=== PATIENT | female | born 1945 | race Caucasian/White ===

== ENCOUNTER 2018-07-10 07:36 | Emergency (ER) | payer MEDICARE, OTHER ==
[2018-07-10] MEDS ORDERED: SODIUM CHLORIDE 0.9% (FLUSH) 10 ML SYG IV PRN (08:06)
[2018-07-10] MEDS ORDERED: MECLIZINE HCL 12.5 MG TAB PO ONE (08:08)
[2018-07-10] MEDS: SODIUM CHLORIDE 0.9% 1000ML 1,000 ML IVS PRN ×2 (08:14→09:30)
--- NOTE | 2018-07-10 08:17 | ED.PDOC ---
History of Present Illness - General Chief Complaint: Respiratory Problem Stated Complaint: shortness of breath Time Seen by Provider: 07/10/18 08:06 Source: patient - History of Present Illness Initial Comments: PT PRESENTS TO THE ED WITH COMPLAINT OF VERTIGO, NAUSEA, AND VOMITING THAT BEGAN THIS AM WHILE GETTING UP TO USE THE RESTROOM. PT ALSO REPORTS SOB, NASAL CONGESTION, AND COUGH THAT HAS BEEN GOING ON FOR SOME TIME NOW. PT DENIES FEVER CHILLS, FOCAL WEAKNESS, OR NUMBNESS. Severity: moderate Improving Factors: immobilization, rest Worsening Factors: movement Associated Symptoms: cough, diaphoresis, nausea/vomiting Allergies/Adverse Reactions: Allergies NO KNOWN ALLERGY Allergy (Verified 07/10/18 07:43) Review of Systems - Review of Systems Constitutional: Denies: chills, fever EENTM: States: nose congestion. Denies: throat pain Respiratory: States: cough, short of breath Cardiology: Denies: chest pain, palpitations Gastrointestinal/Abdominal: States: nausea, vomiting. Denies: abdominal pain Genitourinary: Denies: dysuria, frequency Musculoskeletal: Denies: joint pain, joint swelling Skin: Denies: dryness, lesions Neurological: Denies: headache, numbness, paresthesia, weakness Endocrine: States: no symptoms reported Hematologic/Lymphatic: States: no symptoms reported Past Medical History (General) - Patient Medical History Hx Seizures: No Hx of COPD: No Hx Cardiac Disorders: No Hx Thyroid Disease: No Hx Diabetes: No Hx Other - free text: RECENTLY DIAGNOSED ENDOMETRIAL CANCER Surgical History: appendectomy - Social History Hx Tobacco Use: No Family Medical History - Family History Mother Family History: No Known Physical Exam - Physical Exam General Appearance: Alert, Frail, Ill Appearing, Well Hydrated Eye Exam: bilateral normal, bilateral other - HORIZONTAL NYSTAGMUS WITH LEFT SIDED GAZE Ears, Nose, Throat: hearing grossly normal Neck: supple, normal inspection Respiratory: no respiratory distress, no accessory muscle use, crackles - AT BILATERAL BASES Cardiovascular/Chest: no murmur, tachycardia Gastrointestinal/Abdominal: non tender, soft Back Exam: normal inspection, no CVA tenderness Extremity: non-tender, no pedal edema Neurologic: alert, oriented x 3, depressed affect Skin Exam: normal color, warm/dry Progress - Progress Progress: 07/10/18 10:34 PT REPORTS SOME IMPROVEMENT IN SYMPTOMS AFTER IV FLUIDS. LABS, CT FINDINGS, AND PLAN FOR TRANSFER DISCUSSED WITH PT AND FAMILY MEMBERS AT BEDSIDE. - Results/Orders Results/Orders: Laboratory Tests 07/10/18 07/10/18 07/10/18 07:20 07:20 07:20 WBC 18.1 H RBC 3.94 L Hgb 8.7 L Hct 27.9 L MCV 70.9 L MCH 22.0 L MCHC 31.0 L RDW 16.8 H Plt Count 676 H MPV 6.3 L Absolute Neuts (auto) 11.60 H Absolute Lymphs (auto) 5.20 H Absolute Monos (auto) 1.10 H Absolute Eos (auto) 0.20 Absolute Basos (auto) 0.10 Neutrophils % 64.0 Lymphocytes % 28.5 Monocytes % 5.9 Eosinophils % 1.1 Basophils % 0.5 Normal RBC Morphology Plts mahesh increased Sodium 134 L Potassium 3.2 L Chloride 101 Carbon Dioxide 19 L Anion Gap 17.2 BUN 8 Creatinine 0.81 BUN/Creatinine Ratio 9.9 L Random Glucose 118 H Serum Osmolality 267.7 L Calcium 8.9 Total Bilirubin 0.7 AST 55 H ALT 23 Alkaline Phosphatase 77 Creatine Kinase 37 CK-MB (CK-2) 1.2 CK-MB (CK-2) % Not Reportable Troponin I < 0.02 B-Natriuretic Peptide 64.5 Serum Total Protein 8.1 Albumin 2.6 L Globulin 5.5 H Albumin/Globulin Ratio 0.5 L Urine Color Urine Appearance Urine pH Ur Specific Latty Urine Protein Urine Glucose (UA) Urine Ketones Urine Blood Urine Nitrite Urine Bilirubin Urine Urobilinogen Ur Leukocyte Esterase Urine RBC Urine WBC Ur Epithelial Cells Urine Bacteria 07/10/18 09:50 WBC RBC Hgb Hct MCV MCH MCHC RDW Plt Count MPV Absolute Neuts (auto) Absolute Lymphs (auto) Absolute Monos (auto) Absolute Eos (auto) Absolute Basos (auto) Neutrophils % Lymphocytes % Monocytes % Eosinophils % Basophils % Normal RBC Morphology Sodium Potassium Chloride Carbon Dioxide Anion Gap BUN Creatinine BUN/Creatinine Ratio Random Glucose Serum Osmolality Calcium Total Bilirubin AST ALT Alkaline Phosphatase Creatine Kinase CK-MB (CK-2) CK-MB (CK-2) % Troponin I B-Natriuretic Peptide Serum Total Protein Albumin Globulin Albumin/Globulin Ratio Urine Color Yellow Urine Appearance Clear Urine pH 6.5 Ur Specific Latty 1.015 Urine Protein Negative Urine Glucose (UA) Negative Urine Ketones 15 H Urine Blood Moderate H Urine Nitrite Negative Urine Bilirubin Negative Urine Urobilinogen 0.2 Ur Leukocyte Esterase Large H Urine RBC 5-10 H Urine WBC 20-30 H Ur Epithelial Cells 0-1 Urine Bacteria 0 - EKG/XRAY/CT EKG: Sinus, Tachy - 104BPM, NL INTERVALS, NL AXIS, no ST T wave changes - NO OLD EKG FOR COMPARISON XRAY: chest - EXTENSIVE METASTATIC DISEASE CT: CHEST/AB/PEL: EXTENSIVE METASTATIC DISEASE CT Ordered: Yes CT Interpretation Call Back: No Departure - Departure Clinical Impression: 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 Copy, Patient Portal Self Enrollment Referrals: [facility], [facility] [Primary Care Provider] - 1-2 Weeks Critical Care Note - Critical Care Note Total Time (mins): 45 Transfer to Outside Facility - Transfer Information Accepting Provider:: DR. WRIGHT Accepting Facility: [facility] Reason for Transfer: required specialist not available - ONCOLOGY
--- NOTE | 2018-07-10 08:49 | RAD ---
Study: Single Frontal Radiograph of the Chest. Indication:sob, cough Comparison: None. Impression: Cardiomegaly. Innumerable rounded opacities throughout the bilateral lungs concerning for extensive metastatic disease. Infectious process is an additional less favored consideration. Tiny pleural effusions suspected. No pneumothorax. Degenerative changes of the shoulders and spine noted. Electronically signed by: Collin Cummins MD 07/10/2018 8:41 AM CDT
--- NOTE | 2018-07-10 09:43 | CT ---
EXAM DESCRIPTION: Chest w/Contrast CLINICAL HISTORY: 73 years, Female, sob, multiple lung masses on cxr COMPARISON: Correlation is made with chest x-ray from July 10, 2018 TECHNIQUE: Thin-section noncontrast axial CT images are obtained according to our protocol. Reconstructed MPR images are created and reviewed as well. FINDINGS: Lungs: Numerous pulmonary masses throughout both lungs consistent with extensive pulmonary metastatic disease. One of the larger masses in the anterior segment right upper lobe abuts the mediastinum and hilar region and measures 4.2 x 3.7 cm. Large mass in the left perihilar region measures 3.4 x 2.3 cm. Large lingular mass measures 4.8 cm in greatest dimension. Largest left lower lobe mass measures 6 cm in greatest dimension. Bone window images show no bony destructive lesion to suggest osseous metastatic disease. Mediastinum: In the mediastinum, multiple masses are seen consistent with aileen metastatic disease. Large left paratracheal node measures 3 cm short axis dimension. Large right paratracheal/pretracheal node measures 3.3 cm short axis dimension. Large prevascular nodes measure 2.5 cm and 2.3 cm. Heart size is normal with no pericardial effusion. Chest wall/axilla: No mass or adenopathy. Breast tissue appears symmetrical. Lower neck/supraclavicular: Large node in the right lower neck measures 1.8 cm short axis dimension. No supraclavicular or axillary aileen enlargement. Upper abdomen: See separate report for CT abdomen and pelvis. Coronal and sagittal reformatted images confirm the findings. Lucent lesion in the upper T-spine is thought to be hemangioma rather than metastasis with well-defined sclerotic margins. Lucencies in the left scapula are indeterminate. Correlate with bone scan findings. IMPRESSION: Multiple pulmonary masses consistent with metastatic disease. Enlarged mediastinal and lower right cervical lymph nodes consistent with aileen metastases. This exam was performed according to our departmental dose-optimization program, which includes automated exposure control, adjustment of the mA and/or kV according to patient size and/or use of iterative reconstruction technique. Total DLP equals 845.06 mGycm. Electronically signed by: Brayan Reid MD 07/10/2018 9:39 AM CDT
--- NOTE | 2018-07-10 09:59 | CT ---
EXAM DESCRIPTION: CT ABDOMEN AND PELVIS WITH CONTRAST CLINICAL HISTORY: suspected malignancy COMPARISON: None Available. TECHNIQUE: CT of the abdomen and pelvis are performed during IV bolus administration of routine adult dose of nonionic iodinated IV contrast. No oral contrast. FINDINGS: In the lower chest, the lung bases are abnormal with multiple pulmonary metastases. See separate report for CT of the chest. Heart size is normal. CT abdomen A lesion in the spleen is ill-defined with irregular margins measuring 2.2 x 1.8 cm. This may represent splenic metastasis. No focal liver lesions. No calcified stones in the gallbladder. The liver, pancreas, gallbladder, adrenal glands, stomach and kidneys are unremarkable in appearance. No inflammation around the pancreas. No renal stones or hydronephrosis. No bowel dilatation to suggest obstruction. Enlarged retroperitoneal lymph nodes are seen below the level of the right renal artery in the aortocaval space measuring 2 cm short axis dimension and more inferiorly 1.5 cm short axis dimension. Necrotic metastatic lymph nodes are thought most likely. CT pelvis Mass in the pelvis is consistent with enlarged uterus. In the upper half of the enlarged uterus, a mass is seen 11 x 9 x 10 cm with low density necrotic areas and small collections of gas. Necrotic tumor such as uterine carcinoma or leiomyosarcoma must be considered with this appearance. Gas could be related to nitrogen accumulation within necrosis, previous instrumentation or fistula. No abnormal thick-walled bowel to suggest fistulization with the adjacent bowel loops. Ovaries do not appear enlarged. Appendix is not identified. No inflammation around the cecum or terminal ileum or sigmoid colon. Bladder and distal ureters are negative for stones. Normal enhancement of pelvic vessels. Bone window images show osteopenic appearance of the pelvic bones and proximal femurs. Some questionable lucent areas without definite focal bone destruction. Correlate with bone scan findings. Coronal and sagittal reformatted images confirm the findings. IMPRESSION: Necrotic-appearing uterine mass 9 x 10 x 11 cm. Retroperitoneal adenopathy. Splenic metastasis. This exam was performed according to our departmental dose-optimization program, which includes automated exposure control, adjustment of the mA and/or kV according to patient size and/or use of iterative reconstruction technique. Total DLP equals 845.06 mGycm. Electronically signed by: Brayan Reid MD 07/10/2018 9:54 AM CDT
[2018-07-10] MEDS ORDERED: CEFEPIME 2 GM in SODIUM CHL 0.9% 50ML MIN-BAG+ 50 ML IVPB ONE (10:29)
[2018-07-10] MEDS ORDERED: CEFEPIME 2 GM VIAL ONE (10:31)
[2018-07-10] MEDS ORDERED: SODIUM CHL 0.9% 50ML MIN-BAG+ 50 ML IVPB ONE (10:32)
[2018-07-10 11:17] VITALS: BP 121/76; TEMP 98.9; O2SAT 96
== END 2018-07-10 11:20 | disposition short-term general hospital (02) ==
LOC: ER 07:36 → SUPCPDRO 07:36 → ER 11:20
DX: R09.02 Hypoxemia (principal); N39.0 Urinary tract infection, site not specified; C55 Malignant neoplasm of uterus, part unspecified; C79.9 Secondary malignant neoplasm of unspecified site; R00.0 Tachycardia, unspecified; R42 Dizziness and giddiness; R11.2 Nausea with vomiting, unspecified